=== PATIENT | female | born 1935 | race Caucasian/White ===

== ENCOUNTER 2017-01-12 22:38 | Observation (INO) | payer OTHER, MEDICARE ==
--- NOTE | 2017-01-12 22:58 | PDOC ---
History of Present Illness - General Chief Complaint: Chest Pain Stated Complaint: CHEST PAIN Time Seen by Provider: 01/12/17 22:44 History Source: Patient Exam Limitations: No Limitations - History of Present Illness Initial Comments: 01/12/17 23:11 This is a 81-year-old female with history of anxiety who comes in complaining of left-sided chest pain. Patient has a history significant for non-insulin- dependent diabetes who is non-med compliant and hypertension who is occasionally compliant with her hypertension medications. Patient comes in complaining of left-sided chest pain since approximately 4 PM this afternoon. Patient said pain is been constant but has had no associated symptoms of radiation, nausea, diaphoresis, shortness of breath or any other symptoms. Patient is also complaining of left lower extremity swelling and discomfort. Patient has history significant for DVT and PE in the past patient was on Coumadin but has not been on it for several years. Patient says she does take an aspirin twice a day when she remembers. Patient otherwise lives alone. PAST MEDICAL HISTORY: As per history of present illness PAST SURGICAL HISTORY: no significant history FAMILY HISTORY: Hypertension, diabetes SOCIAL HISTORY: Pt lives alone as it is retired MEDICATIONS: reviewed ALLERGIES: As per nursing notes Review of Systems General: No fevers or chills, no weakness, no weight loss HEENT: No change in vision. No sore throat,. No ear pain CardioVascular: +chest pain, no shortness of breath Respiratory:No cough, or wheezing. Gastrointestinal: no nausea, vomitting, diarrhea or constipation, No rectal bleeding Genitourinary: No dysuria, hematuria, or frequency Musculoskeletal: No joint or muscle pain or swelling, left lower leg swelling Neurologic: No headache, vertigo, dizziness or loss of consciousness Psychiatric: nor depression Skin: No rashes or easy bruising Endocrine: no increased thirst or abnormal weight change Allergic: no skin or latex allergy All other systems reviewed and normal Exam: General: Well-nourished well-developed individual, no acute distress HEENT: Throat: Normal, tonsils normal, no erythema or exudate Neck: Supple, no meningeal signs, no lymphadenopathy Eyes::Pupils equal reactive and round, extraocular motion intact Chest: Nontender to palpation Cardiac: S1-S2 normal, regular rate and rhythm, no murmurs rubs or gallops Respiratory: Lungs clear to auscultation bilateral Abdomen: Soft, nondistended, normal bowel sounds, nontender to palpation diffusely Extremities: Warm, dry, left lower extremity extremity there is 2+ nonpitting edema with increase in warmth and mild erythema extending to the knee There is no palpable tender cord. Pulses are intact distally Skin: No rashes Neuro: Alert and oriented x3, nonfocal exam, grossly intact, normal gait Psych: Normal mood and affect Past History - Past Medical History Allergies/Adverse Reactions: Allergies Allergy/AdvReac Type Severity Reaction Status Date / Time No Known Allergies Allergy Verified 08/30/15 13:52 Home Medications: Ambulatory Orders Acetaminophen [Tylenol Extra Strength] 1,000 mg PO PRN PRN 09/25/14 Albuterol Sulfate Inhaler - [Ventolin HFA Inhaler -] 2 inh PO Q6H #1 inh Aspirin [Aspirin EC] 162 mg PO DAILY 09/25/14 Metformin HCl [Glucophage -] 500 mg PO BID 09/25/14 Salmeterol/Fluticasone [Advair 500Mcg/50Mcg] 1 inh PO BID PRN 09/25/14 Asthma: Yes Diabetes: Yes (TYPE II) HTN: Yes Lung CA: (PE) - Psycho/Social/Smoking Cessation Hx Anxiety: No Suicidal Ideation: No Smoking History: Former smoker Have you smoked in the past 12 months: No Hx Alcohol Use: Yes (SOCIAL) Drug/Substance Use Hx: No Substance Use Type: None *Physical Exam - Vital Signs Last Vital Signs Temp Pulse Resp BP Pulse Ox 98.5 F 78 18 150/63 98 01/12/17 22:45 01/12/17 22:45 01/12/17 22:45 01/12/17 22:45 01/12/17 22:45 Heart Score/ECG Review - History History: Slightly suspicious - Electrocardiogram EKG: Normal - Age Age: >/= 65 - Risk Factors Risk Factors Heart Score: Yes Hx Hypertension, Yes Hx Diabetes, Yes Smoking History Based on the list above the patient has:: >/=3 risk factors or Hx atherosclerotic disease - Troponin Troponin: </= normal limit - Score Heart Score - Total: 4 ED Treatment Course - LABORATORY CBC & Chemistry Diagram: 01/12/17 23:05 01/12/17 23:05 - ADDITIONAL ORDERS Additional order review: Laboratory Results 01/12/17 01/12/17 23:05 23:05 Sodium 135 L Potassium 4.1 Chloride 102 Carbon Dioxide 24 Anion Gap 9 BUN 25 H Creatinine 1.3 D Creat Clearance w eGFR 39.31 Random Glucose 177 H Calcium 9.0 Total Bilirubin 0.6 AST 21 ALT 14 D Alkaline Phosphatase 84 Creatine Kinase 83 Troponin I < 0.03 L Total Protein 6.2 L Albumin 3.4 L 01/12/17 23:05 RBC 4.41 MCV 81.8 MCHC 32.0 RDW 15.2 MPV 8.3 Neutrophils % 65.3 Lymphocytes % 18.3 Monocytes % 8.7 D Eosinophils % 5.5 H Basophils % 2.2 H D - RADIOLOGY Radiology Studies Ordered: Category Date Time Status CHEST X-RAY PORTABLE* [RAD] Stat Radiology 01/13/17 00:18 Ordered DUPLEX VASCUL US-1 LEG [US] Stat Ultrasound 01/12/17 23:21 Taken *DC/Admit/Observation/Transfer Diagnosis at time of Disposition: Chest pain of uncertain etiology - Discharge Dispostion Condition at time of disposition: Stable Admit: Yes Decision to Admit order Date/Time: Decision to Admit Order Category Date Time Status Decision to Admit to Hospital Routine Admission 01/13/17 00:20 Active - Referrals Referrals: Dago Foss [Primary Care Provider] -
[2017-01-12 23:37] LABS: CPK(DFH) 83 IU/L (26-140)
[2017-01-12 23:38] LABS: ALBUMIN 3.4 g/dl (3.5-5.0); BILIRUBIN,TOTAL 0.6 mg/dl (0.2-1.0); CREATININE 1.3 mg/dl (0.6-1.3); TOT PROT 6.2 g/dl (6.4-8.3)
[2017-01-12 23:39] LABS: BASOPHIL 2.2 % (0-2.0); EOSINOPHIL 5.5 % (0-4.5); MCH 26.1 pg (25.7-33.7); MEAN CELL VOLUME 81.8 fl (80-96); MEAN PLT VOLUME 8.3 fl (7.5-11.1); NEUTROPHILS 65.3 % (42.8-82.8); PLATELET COUNT 376 K/MM3 (134-434); RDW 15.2 % (11.6-15.6); WHITE BLOOD COUNT 6.6 K/mm3 (4.0-10.0)
[2017-01-12 23:47] LABS: TROPONIN I (DFP) < 0.03 ng/ml (0.03-0.50)
[2017-01-13] MEDS ORDERED: ALBUTEROL SO4 0.083% IH SOL 2.5 MG/3 ML VIAL.NEB. NEB PRN (00:31)
[2017-01-13] MEDS ORDERED: PIPERACILLIN/TAZOB 3.375 GM/50 ML PRE-DOCKED IVPB STA (00:33)
[2017-01-13] MEDS ORDERED: PIPERACILLIN/TAZOBACTAM 3.375 GM VIAL IVPB ONE (00:35)
[2017-01-13] MEDS ORDERED: MAG HYDROX/AL HYDROX/SIMETH 355 ML ORAL.SUSP PO ONE (00:42)
[2017-01-13] MEDS ORDERED: FAMOTIDINE 20 MG/50 ML IVPB 50 ML IVPB ONE ×2 (00:42→00:48)
[2017-01-13] MEDS ORDERED: ALBUTEROL SO4 0.083% IH SOL 2.5 MG/3 ML VIAL.NEB. NEB ONE (00:48)
[2017-01-13] MEDS ORDERED: MAG HYDROX/AL HYDROX/SIMETH 30 ML UNIT-DOSE CUP ONE (00:48)
[2017-01-13 02:55] VITALS: BMI 24.0
[2017-01-13] MEDS: INSULIN SLIDING SCALE (NOVOLOG) 1 VIAL SQ SCH ×3 (07:03→21:30)
[2017-01-13 07:52] LABS: MCHC 32.8 g/dl (32.0-36.0); MEAN CELL VOLUME 82.2 fl (80-96); MEAN PLT VOLUME 8.2 fl (7.5-11.1); PLATELET COUNT 329 K/MM3 (134-434); RDW 15.4 % (11.6-15.6); WHITE BLOOD COUNT 7.1 K/mm3 (4.0-10.0)
[2017-01-13 08:08] LABS: CALCIUM 9.1 mg/dl (8.4-10.2); CREATININE 1.1 mg/dl (0.6-1.3)
--- NOTE | 2017-01-13 08:39 | HP ---
CHIEF COMPLAINT: Chest pain PCP: Dr. 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 The pain was located on the left side of her hcest, did not radiate, and was burning in character. She thinks it might have been brought on by eating several pieces of chicken with the skin on, which she does not normally do. She denies any associated shortness of breath, nausea/vomiting, or diaphoresis. 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 Recent Travel: None PAST MEDICAL HISTORY: As above PAST SURGICAL HISTORY: Multiple back surgeries at L5/S1 Social History: Lives alone, independent in ADLs Smoking: None Alcohol: None Drugs: None Family History: Allergies No Known Allergies Allergy (Verified 08/30/15 13:52) HOME MEDICATIONS: Home Medications Medication Instructions Recorded Acetaminophen [Tylenol Extra 1,000 mg PO PRN PRN 09/25/14 Strength] Albuterol Sulfate Inhaler - 2 inh PO Q6H #1 inh 09/25/14 [Ventolin HFA Inhaler -] Aspirin [Aspirin EC] 162 mg PO DAILY 09/25/14 Metformin HCl [Glucophage -] 500 mg PO BID 09/25/14 Salmeterol/Fluticasone [Advair 1 inh PO BID PRN 09/25/14 500Mcg/50Mcg] REVIEW OF SYSTEMS CONSTITUTIONAL: Absent: fever, chills, diaphoresis, generalized weakness, malaise, loss of appetite, weight change HEENT: Absent: rhinorrhea, nasal congestion, throat pain, throat swelling, difficulty swallowing, mouth swelling, ear pain, eye pain, visual changes CARDIOVASCULAR: See HPI RESPIRATORY: Absent: cough, shortness of breath, dyspnea with exertion, orthopnea, wheezing, stridor, hemoptysis GASTROINTESTINAL: Absent: abdominal pain, abdominal distension, nausea, vomiting, diarrhea, constipation, melena, hematochezia GENITOURINARY: Absent: dysuria, frequency, urgency, hesitancy, hematuria, flank pain, genital pain MUSCULOSKELETAL: Absent: myalgia, arthralgia, joint swelling, back pain, neck pain SKIN: Left leg swelling, pain, and redness for several weeks. HEMATOLOGIC/IMMUNOLOGIC: Absent: easy bleeding, easy bruising, lymphadenopathy, frequent infections ENDOCRINE: Absent: unexplained weight gain, unexplained weight loss, heat intolerance, cold intolerance NEUROLOGIC: Absent: headache, focal weakness or paresthesias, dizziness, unsteady gait, seizure, mental status changes, bladder or bowel incontinence PSYCHIATRIC: Absent: anxiety, depression, suicidal or homicidal ideation, hallucinations. PHYSICAL EXAMINATION Vital Signs - 24 hr 01/13/17 02:40 Temperature 98.8 F Pulse Rate 73 Respiratory 18 Rate Blood Pressure 140/54 O2 Sat by Pulse 98 Oximetry (%) GENERAL: Awake, alert, and fully oriented, in no acute distress. EYES: Pupils equal, round and reactive to light, extraocular movements intact, sclera anicteric, conjunctiva clear. No lid lag. EARS, NOSE, THROAT: Ears normal, nares patent, oropharynx clear without exudates. Moist mucous membranes. NECK: Normal range of motion, supple without lymphadenopathy, JVD, or masses. LUNGS: Breath sounds equal, clear to auscultation bilaterally. No wheezes, and no crackles. No accessory muscle use. HEART: Regular rate and rhythm, normal S1 and S2 without murmur, rub or gallop. ABDOMEN: Soft, nontender, not distended, normoactive bowel sounds, no guarding, no rebound, no masses. No hepatomegaly or splenomegaly. MUSCULOSKELETAL: Normal range of motion at all joints. No bony deformities or tenderness. No CVA tenderness. UPPER EXTREMITIES: 2+ pulses, warm, well-perfused. No cyanosis. No clubbing. No peripheral edema. LOWER EXTREMITIES: 2+ pulses, warm, well-perfused. No calf tenderness. LLE with 2+ pitting edema, erythema from ankle to knee, +calf tenderness. NEUROLOGICAL: Cranial nerves II-XII intact. Normal speech. Normal gait. PSYCHIATRIC: Anxious affect. SKIN: Warm, dry, normal turgor, no rashes or lesions noted, normal capillary refill. Laboratory Results - last 24 hr 01/13/17 01/13/17 01/13/17 06:00 06:30 07:02 WBC 7.1 RBC 4.11 Hgb 11.1 Hct 33.8 MCV 82.2 MCHC 32.8 RDW 15.4 Plt Count 329 MPV 8.2 Sodium 135 L Potassium 4.2 Chloride 102 Carbon Dioxide 26 Anion Gap 7 L BUN 23 H Creatinine 1.1 POC Glucometer 293 Random Glucose 340 H* D Calcium 9.1 ASSESSMENT/PLAN: 81 year old female placed in observation for chest pain. 1. Chest pain -Monitor on telemetry -Serial troponins to rule out [place] -Continue ASA -Check lipid profile 2. Lower extremity pain and redness -Suspect cellulitis -No SIRS criteria present -Follow up official duplex read: [facility] preliminary report is negative for DVT -Zosyn x 1 dose given in ED -Start Ceftriaxone 1g daily, Vancomycin x 1 dose -Leg elevation -ID consultation requested 3. NIDDM -Patient reports that she stopped taking her medications 3-4 weeks ago and has been eating large amounts of sugary foods -FSACHS -ISS -Diabetic diet -Check HgbA1C 4. HTN -Not on any meds currently -At goal for age -Observe 5. Ppx -Heparin 5000 units sq bid -PT/ambulation DISPO: Observation. Visit type - Emergency Visit Emergency Visit: Yes ED Registration Date: 01/13/17 Care time: The patient presented to the Emergency Department on the above date and was hospitalized for further evaluation of their emergent condition. - New Patient This patient is new to me today: Yes Date on this admission: 01/14/17 - Critical Care Critical Care patient: No
[2017-01-13] MEDS ORDERED: PATIENT'S OWN MEDICATION (NON-FORMULARY) (Salmeterol/Fluticasone [Advair 500mcg/50mcg -] 1 PO PRN (08:41)
[2017-01-13] MEDS: HEPARIN NA (PORCINE) 5,000 UNITS/ML 1ML VIAL SQ SCH ×2 (09:59→21:31)
[2017-01-13] MEDS: ASPIRIN 81 MG CHEWABLE TABLETS PO SCH (09:59)
[2017-01-13] MEDS: FLUTICASONE/SALMETEROL 100 MCG/50 MCG DISKUS IH SCH ×2 (10:05→21:30)
[2017-01-13] MEDS ORDERED: VANCOMYCIN 750 MG in DEXTROSE 5%-WATER - 250 ML IVPB ONE (10:05)
[2017-01-13] MEDS ORDERED: CEFTRIAXONE 1 GM in DEXTROSE 5%-WATER - 100 ML IVPB ONE (10:15)
[2017-01-13] MEDS ORDERED: CEFTRIAXONE 1 GM/50 ML IVPB SCH (10:30)
--- NOTE | 2017-01-13 11:22 | EKG ---
Test Reason : Blood Pressure : / mmHG Vent. Rate : 078 BPM Atrial Rate : 078 BPM P-R Int : 122 ms QRS Dur : 074 ms QT Int : 384 ms P-R-T Axes : 073 037 055 degrees QTc Int : 437 ms SINUS RHYTHM WITH PREMATURE ATRIAL COMPLEXES NONSPECIFIC T WAVE ABNORMALITY NO PREVIOUS ECGS AVAILABLE Confirmed by MD BREANNE, JUHI ([id number]) on 01/13/2017 11:22:16 AM Referred By: AKUA Confirmed By:JUHI RAYMUNDO MD
[2017-01-13 11:34] LABS: CPK(DFH) 57 IU/L (26-140)
[2017-01-13 11:50] LABS: TROPONIN I (DFP) < 0.03 ng/ml (0.03-0.50)
[2017-01-13] MEDS ORDERED: PT OWN MED DRAWER 7, Y5N ONE (21:46)
[2017-01-14] MEDS ORDERED: LORazepam 0.5 MG TABLET PO PRN (00:03)
[2017-01-14] MEDS: INSULIN SLIDING SCALE (NOVOLOG) 1 VIAL SQ SCH ×5 (06:57→21:05)
[2017-01-14 08:10] LABS: BASOPHIL 0.6 % (0-2.0); EOSINOPHIL 5.1 % (0-4.5); MCH 26.7 pg (25.7-33.7); MCHC 32.8 g/dl (32.0-36.0); MEAN CELL VOLUME 81.6 fl (80-96); MEAN PLT VOLUME 8.3 fl (7.5-11.1); NEUTROPHILS 66.7 % (42.8-82.8); PLATELET COUNT 289 K/MM3 (134-434); RDW 15.4 % (11.6-15.6); WHITE BLOOD COUNT 6.8 K/mm3 (4.0-10.0)
[2017-01-14 08:44] LABS: ALBUMIN 2.9 g/dl (3.5-5.0); ALK PHOS 72 U/L (32-92); ANION GAP 7 (8-16); BILIRUBIN,TOTAL 0.8 mg/dl (0.2-1.0); CALCIUM 9.1 mg/dl (8.4-10.2); CO2 26 mmol/L (22-28); CREATININE 0.8 mg/dl (0.6-1.3); GLUCOSE,RANDOM 198 mg/dl (74-106); SGOT/AST 19 U/L (10-42); SGPT/ALT 15 U/L (10-40); TOT PROT 5.4 g/dl (6.4-8.3)
[2017-01-14 09:03] LABS: CHOLESTEROL 273 mg/dl
--- NOTE | 2017-01-14 09:10 | PN ---
Progress Note (short form) - Note Progress Note: ID Consult dictated Cellulitis L LE NIDDM Empiric cefazolin 1gm IVPB q8h Elevation May substitute keflex 500mg po tid next 24hr
[2017-01-14] MEDS ORDERED: PT OWN MED DRAWER 7, Y5N ONE ×2 (09:25→20:50)
[2017-01-14] MEDS: FLUTICASONE/SALMETEROL 100 MCG/50 MCG DISKUS IH SCH ×2 (09:40→21:07)
[2017-01-14] MEDS: ASPIRIN 81 MG CHEWABLE TABLETS PO SCH (09:40)
[2017-01-14] MEDS: CEFAZOLIN 1 GM/D5W 50 ML IVPB SCH ×2 (09:41→18:30)
[2017-01-14] MEDS: HEPARIN NA (PORCINE) 5,000 UNITS/ML 1ML VIAL SQ SCH ×2 (09:41→21:07)
[2017-01-14] MEDS ORDERED: CEFTRIAXONE 1 GM/50 ML IVPB SCH (10:00)
--- NOTE | 2017-01-14 10:28 | CONS ---
INFECTIOUS DISEASE CONSULTATION DATE OF CONSULTATION: DATE OF DICTATON: 01/14/2017 HISTORY OF PRESENT ILLNESS: The patient is an 81-year-old oig-kpqfxup-lkomisaew diabetic who was evaluated for cellulitis of the left lower extremity. She presented to the hospital on January 12, 2017 with complaints of left-sided chest pain. She was noted to have erythema and swelling of the left lower extremity. A Doppler exam was performed and was negative for DVT. She empirically received Zosyn, ceftriaxone and vancomycin. She denies any traumatic injury to her left lower extremity. No insect or animal bites or scratches. She denies prior history of cellulitis or serious soft tissue infection requiring hospitalization. She denies history of MRSA. According to the notes, she has a history of PE and DVT; however, she has no recall for blood clot in her leg. PAST MEDICAL HISTORY; Positive for [id number]-kcxsftrsl diabetes mellitus, hypertension, DVT, pulmonary embolism. ALLERGIES: No known allergies. MEDICATIONS: Tylenol, Ventolin, aspirin, metformin, Advair. SOCIAL HISTORY: Lives at home. She is a . A former smoker. SYSTEMS REVIEW: Neurologic: No loss of consciousness, seizure activity or focal weakness. Cardiac: As per HPI. Respiratory: Negative for cough or sputum production. Gastrointestinal: Negative for vomiting or diarrhea. Genitourinary: Negative for urinary tract infection. LABORATORY DATA: White count 7.1, hematocrit 33.8. Platelet count 329. BUN 23, creatinine 1.1. Blood cultures preliminarily negative. Chest x-ray negative. PHYSICAL EXAMINATION: General: She is out about the chair. She is not acutely toxic appearing. Vital signs: Temperature 98.0, blood pressure 128/71, pulse 80/regular, respirations 18 per minute; HEENT: Sclera anicteric. Heart sounds: S1, S2. Lungs: Clear. Abdomen: Soft, no tenderness elicited. No mass, rebound or rigidity. Extremities: 1+ left lower extremity edema from below the knee to the foot. There is mild erythema and warmth involving the distal left lower extremity from the area below the knee to the foot. It is warm to touch. There is no crepitus or fluctuance and no lymphangitic streaking. IMPRESSION: 1. Cellulitis, left lower extremity. 2. Qjm-jptyshs-uwlgzzzuw diabetes mellitus. 3. Chest pain syndrome. PLAN: 1. Empiric antibiotic coverage of skin pathogens in this patient from the community with cefazolin 1 gm IV piggyback every 8 hours. 2. Continue elevation. 3. If stable, substitute Keflex 500 mg p.o. every 8 hours next 24-48 hours. SAIRA JUNG M.D. ADAM/[id number]
[2017-01-14] MEDS ORDERED: INSULIN (NOVOLOG) ASPART 100 UNITS/ML 10ML VIAL ONE ×4 (11:33→16:34)
[2017-01-14] MEDS: RANITIDINE HCL 150 MG TABLET (FP) PO SCH ×2 (11:34→21:06)
--- NOTE | 2017-01-14 13:16 | PN ---
[id number] denies any dyspnea on exertion. OBJECTIVE: patient is an 81 year old female with a history of NIDDM, HTN, DVT/ PE (no longer on AC), and anxiety Patient was admitted to observation for the emergency department for left lower extremity cellulitis and chest pain R/O ACS Vital Signs Period Temp Pulse Resp BP Sys/Francisco Pulse Ox Last 24 Hr 98.0 F-99.0 F 65-80 17-20 120-135/51-70 97-99 GENERAL: The patient is awake, alert, and fully oriented, in no acute distress. HEAD: Normal with no signs of trauma. EYES: PERRL, extraocular movements intact, sclera anicteric, conjunctiva clear. No ptosis. ENT: Ears normal, nares patent, oropharynx clear without exudates, moist mucous membranes. NECK: Trachea midline, full range of motion, supple. LUNGS: Breath sounds equal, clear to auscultation bilaterally, no wheezes, no crackles, no accessory muscle use. HEART: Regular rate and rhythm, S1, S2 without murmur, rub or gallop. ABDOMEN: Soft, nontender, nondistended, normoactive bowel sounds, no guarding, no rebound, no hepatosplenomegaly, no masses. EXTREMITIES: 2+ pulses, warm, well-perfused, no edema. left lower extremity, minimal erythema+1 trace edema less than 3 second capillary refill +4 pedal pulse NEUROLOGICAL: Cranial nerves II through XII grossly intact. Normal speech, steady gait is noted PSYCH: Normal mood, normal affect. SKIN: Warm, dry, normal turgor, no rashes or lesions noted Laboratory Results - last 24 hr 01/13/17 01/14/17 01/14/17 21:23 06:42 07:33 WBC 6.8 RBC 3.81 Hgb 10.2 L Hct 31.1 L MCV 81.6 MCHC 32.8 RDW 15.4 Plt Count 289 MPV 8.3 Neutrophils % 66.7 Lymphocytes % 21.4 Monocytes % 6.2 Eosinophils % 5.1 H Basophils % 0.6 Sodium Potassium Chloride Carbon Dioxide Anion Gap BUN Creatinine Creat Clearance w eGFR POC Glucometer 281 166 Random Glucose Hemoglobin A1c % Calcium Total Bilirubin AST ALT Alkaline Phosphatase Total Protein Albumin Triglycerides Cholesterol Total LDL Cholesterol HDL Cholesterol 01/14/17 01/14/17 01/14/17 07:33 07:33 08:00 WBC RBC Hgb Hct MCV MCHC RDW Plt Count MPV Neutrophils % Lymphocytes % Monocytes % Eosinophils % Basophils % Sodium 138 Potassium 4.3 Chloride 105 Carbon Dioxide 26 Anion Gap 7 L BUN 20 H Creatinine 0.8 D Creat Clearance w eGFR > 60 POC Glucometer Random Glucose 198 H D Hemoglobin A1c % 10.4 H Calcium 9.1 Total Bilirubin 0.8 D AST 19 ALT 15 Alkaline Phosphatase 72 Total Protein 5.4 L Albumin 2.9 L Triglycerides 89 Cholesterol 273 Total LDL Cholesterol 160 HDL Cholesterol 95 H 01/14/17 11:14 WBC RBC Hgb Hct MCV MCHC RDW Plt Count MPV Neutrophils % Lymphocytes % Monocytes % Eosinophils % Basophils % Sodium Potassium Chloride Carbon Dioxide Anion Gap BUN Creatinine Creat Clearance w eGFR POC Glucometer 194 Random Glucose Hemoglobin A1c % Calcium Total Bilirubin AST ALT Alkaline Phosphatase Total Protein Albumin Triglycerides Cholesterol Total LDL Cholesterol HDL Cholesterol Active Medications Generic Name Dose Route Start Last Admin Trade Name Freq PRN Reason Stop Dose Admin Albuterol Sulfate 1 amp 01/13/17 00:31 01/13/17 01:13 Ventolin 0.083% Nebulizer Soln - NEB 1 amp Q8H PRN Administration SHORT OF BREATH/WHEEZING Aspirin 162 mg 01/13/17 10:00 01/14/17 09:40 Asa - PO 162 mg DAILY GOSIA Administration Heparin Sodium (Porcine) 5,000 unit 01/13/17 10:00 01/14/17 09:41 Heparin - SQ 5,000 unit BID GOSIA Administration Cefazolin Sodium 50 mls @ 100 mls/hr 01/14/17 10:00 01/14/17 09:41 Ancef 1 Gm Premixed Ivpb - IVPB 100 mls/hr Q8H-IV GOSIA Administration Insulin Aspart 1 vial 01/13/17 07:00 01/14/17 11:34 Novolog Vial Sliding Scale - SQ 2 units ACHS GOSIA Administration Protocol Lorazepam 0.5 mg 01/14/17 00:03 Ativan - PO BID PRN ANXIETY Ranitidine HCl 150 mg 01/14/17 11:15 01/14/17 11:34 Zantac - PO 150 mg BID GOSIA Administration Fluticasone/Salmeterol 1 puff 01/13/17 10:00 01/14/17 09:40 Advair 100mcg/50mcg - IH 1 puff BID GOSIA Administration ASSESSMENT/PLAN: 1. card: Chest pain -continuous telemetry monitoring no dysrhythmias noted - troponin 3 WNL - pending echo 2. ID:Lower extremity pain and redness - ultrasound of LE doppler: negative - continue ancef as per ID -ID consulted and followed 3. NIDDM -Patient reports that she stopped taking her medications 3-4 weeks ago and has been eating large amounts of sugary foods -FSACHS -ISS -Diabetic diet - HgbA1C elevated 4. HTN -Not on any meds currently -At goal for age -Observe 5. Ppx -Heparin 5000 units sq bid -PT/ambulation DISPO: Observation. Visit type - Emergency Visit Emergency Visit: Yes ED Registration Date: 01/13/17 Care time: The patient presented to the Emergency Department on the above date and was hospitalized for further evaluation of their emergent condition. - New Patient This patient is new to me today: Yes Date on this admission: 01/14/17 - Critical Care Critical Care patient: No - Discharge Referral Referred to [facility] Med P.C[facility] No
[2017-01-15] MEDS: CEFAZOLIN 1 GM/D5W 50 ML IVPB SCH ×2 (01:29→09:51)
[2017-01-15 05:41] VITALS: BP 127/48; PULSE 64; TEMP 98.5
[2017-01-15] MEDS ORDERED: INSULIN (NOVOLOG) ASPART 100 UNITS/ML 10ML VIAL ONE ×2 (07:19→11:11)
[2017-01-15] MEDS: INSULIN SLIDING SCALE (NOVOLOG) 1 VIAL SQ SCH ×2 (07:21→11:16)
[2017-01-15] MEDS ORDERED: PT OWN MED DRAWER 7, Y5N ONE (09:47)
[2017-01-15] MEDS: RANITIDINE HCL 150 MG TABLET (FP) PO SCH (09:51)
[2017-01-15] MEDS: ASPIRIN 81 MG CHEWABLE TABLETS PO SCH (09:51)
[2017-01-15] MEDS: FLUTICASONE/SALMETEROL 100 MCG/50 MCG DISKUS IH SCH (09:51)
[2017-01-15] MEDS: HEPARIN NA (PORCINE) 5,000 UNITS/ML 1ML VIAL SQ SCH (09:51)
--- NOTE | 2017-01-15 10:32 | PN ---
Progress Note, Physician History of Present Illness: OOB in chair No c/o leg pain No c/o fever/ chills - Current Medication List Current Medications: Active Medications Albuterol Sulfate (Ventolin 0.083% Nebulizer Soln -) 1 amp NEB Q8H PRN PRN Reason: SHORT OF BREATH/WHEEZING Last Admin: 01/13/17 01:13 Dose: 1 amp Aspirin (Asa -) 162 mg PO DAILY GOSIA Last Admin: 01/15/17 09:51 Dose: 162 mg Heparin Sodium (Porcine) (Heparin -) 5,000 unit SQ BID GOSIA Last Admin: 01/15/17 09:51 Dose: 5,000 unit Cefazolin Sodium (Ancef 1 Gm Premixed Ivpb -) 50 mls @ 100 mls/hr IVPB Q8H-IV GOSIA Last Admin: 01/15/17 09:51 Dose: 100 mls/hr Insulin Aspart (Novolog Vial Sliding Scale -) 1 vial SQ ACHS GOSIA PRN Reason: Protocol Last Admin: 01/15/17 07:21 Dose: 4 units Lorazepam (Ativan -) 0.5 mg PO BID PRN PRN Reason: ANXIETY Last Admin: 01/15/17 01:28 Dose: 0.5 mg Ranitidine HCl (Zantac -) 150 mg PO BID [facility] Last Admin: 01/15/17 09:51 Dose: 150 mg Fluticasone/Salmeterol (Advair 100mcg/50mcg -) 1 puff IH BID [facility] Last Admin: 01/15/17 09:51 Dose: 1 puff - Objective Vital Signs: Vital Signs Temperature 98.5 F 01/15/17 05:39 Pulse Rate 64 01/15/17 05:39 Respiratory Rate 18 01/15/17 05:39 Blood Pressure 127/48 01/15/17 05:39 O2 Sat by Pulse Oximetry (%) 96 01/15/17 08:14 Constitutional: Yes: No Distress Eyes: Yes: Conjunctiva Clear Cardiovascular: Yes: Regular Rate and Rhythm, S1, S2 Respiratory: Yes: CTA Bilaterally Gastrointestinal: Yes: Normal Bowel Sounds, Soft. No: Tenderness Extremities: Yes: Other (+ LE edema decreased erythema/ warmth L LE) Labs: CBC, BMP 01/14/17 07:33 01/14/17 07:33 Assessment/Plan L LE cellulitis NIDDM May substitute po keflex 500mg tid x 7d
--- NOTE | 2017-01-15 11:18 | DS ---
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 The pain was located on the left side of her hcest, did not radiate, and was burning in character. She thinks it might have been brought on by eating several pieces of chicken with the skin on , which she does not normally do. She denies any associated shortness of breath , nausea/vomiting, or diaphoresis. ER course was notable for: (1) EKG: Sinus rhythm at 78 bpm with PACs (2) Troponin <0.03 (3) WBC within normal limits at 6.6 (4) CXR: no acute pathology (5) Duplex vascular u/s: no evidence of DVT in the LLE per preliminary Imaging deputy controller report Vital Signs Period Temp Pulse Resp BP Sys/Francisco Pulse Ox Last 24 Hr 98 F-99.0 F 64-68 18-18 114-142/48-67 96-99 PHYSICAL EXAM GENERAL: The patient is awake, alert, and fully oriented, in no acute distress. HEAD: Normal with no signs of trauma. EYES: PERRL, extraocular movements intact, sclera anicteric, conjunctiva clear. ENT: Ears normal, nares patent, oropharynx clear without exudates, moist mucous membranes. NECK: Trachea midline, full range of motion, supple. LUNGS: Breath sounds equal, clear to auscultation bilaterally, no wheezes, no crackles, no accessory muscle use. HEART: Regular rate and rhythm, S1, S2 without murmur, rub or gallop. ABDOMEN: Soft, nontender, nondistended, normoactive bowel sounds, no guarding, no rebound, no hepatosplenomegaly, no masses. EXTREMITIES: 2+ pulses, warm, well-perfused, no edema. NEUROLOGICAL: Cranial nerves II through XII grossly intact. Normal speech, gait not observed. PSYCH: Normal mood, normal affect. SKIN: Warm, dry, normal turgor, no rashes or lesions noted. LABS Laboratory Results - last 24 hr 01/14/17 01/14/17 01/14/17 11:14 16:22 20:57 POC Glucometer 194 296 150 01/15/17 06:37 POC Glucometer 214 CBC WBC 6.8 K/mm3 (4.0-10.0) 01/14/17 07:33 RBC 3.81 M/mm3 (3.60-5.2) 01/14/17 07:33 Hgb 10.2 GM/dl (10.7-15.3) L 01/14/17 07:33 Hct 31.1 % (32.4-45.2) L 01/14/17 07:33 MCV 81.6 fl (80-96) 01/14/17 07:33 MCHC 32.8 g/dl (32.0-36.0) 01/14/17 07:33 RDW 15.4 % (11.6-15.6) 01/14/17 07:33 Plt Count 289 K/MM3 (134-434) 01/14/17 07:33 MPV 8.3 fl (7.5-11.1) 01/14/17 07:33 Neutrophils % 66.7 % (42.8-82.8) 01/14/17 07:33 Lymphocytes % 21.4 % (8-40) 01/14/17 07:33 Monocytes % 6.2 % (3.8-10.2) 01/14/17 07:33 Eosinophils % 5.1 % (0-4.5) H 01/14/17 07:33 Basophils % 0.6 % (0-2.0) 01/14/17 07:33 CMP Sodium 138 mmol/L (136-145) 01/14/17 07:33 Potassium 4.3 mmol/L (3.5-5.1) 01/14/17 07:33 Chloride 105 mmol/L (98-107) 01/14/17 07:33 Carbon Dioxide 26 mmol/L (22-28) 01/14/17 07:33 Anion Gap 7 (8-16) L 01/14/17 07:33 BUN 20 mg/dl (7-18) H 01/14/17 07:33 Creatinine 0.8 mg/dl (0.6-1.3) D 01/14/17 07:33 Creat Clearance w eGFR > 60 (>60) 01/14/17 07:33 POC Glucometer 229 UNITS (()) 01/15/17 11:09 Random Glucose 198 mg/dl (74-106) H D 01/14/17 07:33 Hemoglobin A1c % 10.4 % (4.8-6.0) H 01/14/17 08:00 Calcium 9.1 mg/dl (8.4-10.2) 01/14/17 07:33 Total Bilirubin 0.8 mg/dl (0.2-1.0) D 01/14/17 07:33 AST 19 U/L (10-42) 01/14/17 07:33 ALT 15 U/L (10-40) 01/14/17 07:33 Alkaline Phosphatase 72 U/L (32-92) 01/14/17 07:33 Creatine Kinase 57 IU/L (26-140) 01/13/17 10:50 Troponin I < 0.03 ng/ml (0.03-0.50) L 01/13/17 10:50 Total Protein 5.4 g/dl (6.4-8.3) L 01/14/17 07:33 Albumin 2.9 g/dl (3.5-5.0) L 01/14/17 07:33 Triglycerides 89 mg/dl (35-160) 01/14/17 07:33 Cholesterol 273 mg/dl 01/14/17 07:33 Total LDL Cholesterol 160 mg/dl 01/14/17 07:33 HDL Cholesterol 95 mg/dl (29-89) H 01/14/17 07:33 HOSPITAL COURSE: patient was admitted to observation from the emergency department for chest pain rule out ACS. She was placed on continuous telemetry monitoring no dysrhythmias was noted, troponin 3 WNL. Echocardiogram grade I diastolic dysfunction, LV WNL. patient was also noted to have cellulitis of the left lower extremity, ultrasound of left lower extremity resulted as negative for DVTs. Patient was placed on cefazolin IV for 48 hours. Infectious disease physician, Dr. Montemayor was consulted and followed patient throughout hospitalization. Hypoglycemia was noted upon admission from the emergency department. Patient reports that she stopped taking her metformin 3-4 weeks ago and has been eating large amounts of sugary foods. She was placed on fingersticks before meals and at bedtime with regular insulin coverage. A1c resulted as 10, patient advised restarting metformin with follow-up to her primary care physician. Blood pressure remained at goal through out hospitalization. Minutes to complete discharge: 45 Discharge Summary Reason For Visit: CHEST PAIN Current Active Problems Chest pain of uncertain etiology (Acute) Condition: Stable - Instructions Diet, Activity, Other Instructions: resume diabetic diet continue taking Keflex daily as prescribed Continue all medications as prescribed Return to the emergency department immediately with ANY new, persistent or worsening symptoms. You MUST call and follow up with your doctor tomorrow. Please make sure your doctor reviews the results of your hospital stay. Referrals: Dago Foss [Primary Care Provider] - Disposition: HOME - Home Medications Comprehensive Discharge Medication List: Ambulatory Orders Acetaminophen [Tylenol Extra Strength] 1,000 mg PO PRN PRN 09/25/14 Albuterol Sulfate Inhaler - [Ventolin HFA Inhaler -] 2 inh PO Q6H #1 inh Aspirin [Aspirin EC] 162 mg PO DAILY 09/25/14 Metformin HCl [Glucophage -] 500 mg PO BID 09/25/14 Salmeterol/Fluticasone [Advair 500Mcg/50Mcg] 1 inh PO BID PRN 09/25/14 This patient is new to me today: No Emergency Visit: Yes ED Registration Date: 01/13/17 Care time: The patient presented to the Emergency Department on the above date and was hospitalized for further evaluation of their emergent condition. Critical Care patient: No - Discharge Referral Referred to [facility] Med P.C.: No
== END 2017-01-15 14:12 | disposition home or self-care (01) ==
LOC: FER 22:38 → FM/S 01-13 01:15
PROVIDERS: ADMIT Internal Medicine; ATTEND Nurse Practitioner Family
DX: R07.9 Chest pain, unspecified (principal); L03.116 Cellulitis of left lower limb; E11.9 Type 2 diabetes mellitus without complications; I10 Essential (primary) hypertension
CPT/HCPCS: 36415; 71010-TC; 80048; 80053; 80061; 82550; 83036; 84484; 85025; 85027; 87040; 93005; 93306-TC; 93971-TC; 97116-GP; 97161-GP; 99283-25; G0378; J1644

== ENCOUNTER 2019-07-04 16:38 | Emergency (ER) | payer OTHER, MEDICARE ==
--- NOTE | 2019-07-04 17:18 | PDOC ---
Attending Attestation - Resident Resident Name: EdyJostinSean - ED Attending Attestation I have performed the following: I have examined & evaluated the patient, The case was reviewed & discussed with the resident, I agree w/resident's findings & plan, Exceptions are as noted - HPI HPI: 07/04/19 17:17 83y F hx of dm, Polyarthralgia rheumatica, depression presents with burning chest pain since this morning. pt denies any sob, diaphoresis, n/v, cough, hemoptysis, abd pain, back pain worsening leg swelling. no worsening of discomfort with position or with eating. pt notes a history of similar burning pain in the past. physical exam: no acut edistress pulm: cta b/l card: rrr, no mrg abd soft notnender, no cva tenderness ext: b/l +1 pitting edema b/l skin: no rash on chest possible gastritits, consider acs will ck ekg, labs - Physicial Exam PE: 07/04/19 18:46 see above - Medical Decision Making 07/04/19 18:46 pt feeling improved tolerating oral intake labs reviewed and unremarkble will dc with supportive care at home I discussed the physical exam findings, ancillary test results and final diagnoses with the patient. I answered all of the patient's questions. The patient was satisfied with the care received and felt comfortable with the discharge plan and treatment plan. The patient will call their primary care physician within 24 hours to arrange follow-up and will return to the Emergency Department with any new, persistent or worsening symptoms. Heart Score/ECG Review - ECG Impressions Comment:: 07/04/19 18:46 Twelve-lead EKG was performed and reviewed by me. There is normal sinus rhythm rate of 59 The axis is normal. The intervals are normal. There is normal R wave progression There are no ST or T wave abnormalities. Impression: sinus bradycardiua
[2019-07-04] MEDS ORDERED: MAG HYDROX/AL HYDROX/SIMETH -MYLANTA- ORAL SUSPENSION PO ONE (17:23)
[2019-07-04] MEDS ORDERED: FAMOTIDINE 20 MG TABLET ONE (17:26)
[2019-07-04] MEDS ORDERED: MAG HYDROX/AL HYDROX/SIMETH 30 ML UNIT-DOSE CUP ONE (17:26)
[2019-07-04] MEDS ORDERED: FAMOTIDINE 20 MG TABLET PO ONE (17:26)
[2019-07-04 17:30] VITALS: BP 149/96; PULSE 58; TEMP 98.3; BMI 22.8
[2019-07-04] MEDS ORDERED: risperiDONE 0.25 MG TABLET (FP) PO ONE (17:37)
[2019-07-04] MEDS ORDERED: ROSUVASTATIN CA 20 MG TABLET (FP) PO ONE (17:38)
[2019-07-04 18:04] LABS: BASO % 0.4 % (0-2.0); EOS % 3.6 % (0-4.5); HEMATOCRIT 38.8 % (32.4-45.2); HEMOGLOBIN 12.7 GM/dl (10.7-15.3); LYMPH % 27.4 % (8-40); MCHC 32.8 g/dl (32.0-36.0); MEAN CELL VOLUME 88.5 fl (80-96); MEAN PLT VOLUME 7.9 fl (7.5-11.1); MONO % 8.6 % (3.8-10.2); PLATELET COUNT 297 K/MM3 (134-434); RBC 4.39 M/mm3 (3.60-5.2); RDW 16.9 % (11.6-15.6); WHITE BLOOD COUNT 5.9 K/mm3 (4.0-10.8)
[2019-07-04 18:13] LABS: BILIRUBIN,TOTAL 0.7 mg/dl (0.2-1); CALCIUM 9.9 mg/dl (8.5-10); CREATININE 0.8 mg/dl (0.55-1.3); TOT PROT 6.9 g/dl (6.4-8.2)
--- NOTE | 2019-07-04 18:15 | PDOC ---
History of Present Illness - General Chief Complaint: Pain Stated Complaint: CLAVICLE PAIN,LEG PAIN Time Seen by Provider: 07/04/19 16:54 History Source: Patient Exam Limitations: No Limitations - History of Present Illness Initial Comments: 07/04/19 18:09 Source: Patient, tangential w/ pressured speech HPI: Pt is 83yo F with PMH DM and polymyalgia rheumatica presenting with chest pain since 7AM. Patient reports pain is burning in nature, now reduced to a "rawness or diluted redness" similar to her chronic pains that she associates with polymyalgia rheumtica. Perseverates on FH of DM and heart disease (both parents). Denies shortness of breath, cough, nausea, vomiting, fevers, chills. Says she feels unwell, sad, and "amped up." Endorses good PO. Pain is unchanged from prior chronic pains - denies any new or different symptoms. All: KNDA Meds: per chart PMH: as above PSH: discussion deferred 2/2 tangential nature of interview Past History - Travel Traveled outside of the country in the last 30 days: No Close contact w/someone who was outside of country & ill: No - Past Medical History Allergies/Adverse Reactions: Allergies Allergy/AdvReac Type Severity Reaction Status Date / Time No Known Allergies Allergy Verified 07/04/19 16:40 Home Medications: Ambulatory Orders Empagliflozin [Jardiance] 10 mg PO DAILY 07/04/19 Risperidone 0.25 mg PO HS 07/04/19 Rosuvastatin Calcium [Crestor] 20 mg PO HS 07/04/19 Sitagliptin Phos/Metformin HCl [Janumet 50-500 mg Tablet] 1 each PO BID Asthma: Yes COPD: (DENIES) Diabetes: Yes HTN: Yes Psychiatric Problems: Yes (ANXIETY,DEPRESSION) Lung CA: (PE) Other medical history: PE,DVT - Surgical History Orthopedic Surgery: Yes (L5S1 repair x3) - Suicide/Smoking/Psychosocial Hx Smoking History: Former smoker Have you smoked in the past 12 months: No Information on smoking cessation initiated: No Hx Alcohol Use: No Drug/Substance Use Hx: No Substance Use Type: None Review of Systems - Review of Systems Able to Perform ROS?: Yes (Limited 2/2 tangents) Is the patient limited Romansh proficient: Yes Constitutional: No: Chills, Diaphoresis, Fever, Weakness HEENTM: No: Eye Pain, Nose Pain, Nose Congestion, Throat Pain Respiratory: No: Cough, Shortness of Breath, SOB with Exertion, Wheezing Cardiac (ROS): Yes: See HPI, Chest Pain, Edema (chronic for years). No: Irregular Heart Rate, Palpitations, Syncope, Chest Tightness ABD/GI: No: Constipated, Diarrhea, Nausea, Poor Appetite, Poor Fluid Intake, Vomiting : No: Burning, Dysuria, Discharge, Frequency, Hematuria, Pain Musculoskeletal: No: Back Pain, Gout, Joint Pain, Muscle Pain Integumentary: No: Bruising, Change in Color, Lesions, Pruritus Neurological: No: Headache, Numbness, Tingling, Weakness Psychiatric: Yes: Anxiety, Depression ("I'm just sad! It is a normal human condition") Endocrine: No: Flushing, Intolerance to Cold, Intolerance to Heat, Unexplained Weight Gain, Unexplained Weight Loss Hematologic/Lymphatic: No: Anemia, Easy Bleeding, Easy Bruising All Other Systems: Reviewed and Negative *Physical Exam - Vital Signs Last Vital Signs Temp Pulse Resp BP Pulse Ox 98.3 F 58 L 20 149/96 97 07/04/19 16:39 07/04/19 16:39 07/04/19 16:39 07/04/19 16:39 07/04/19 16:39 - Physical Exam Comments: 07/04/19 18:17 Vitals reviewed, AFHDS Gen: Elderly woman in NAD, sitting in a chair, talkative HEENT: NCAT, EOMI, MMM, normal morphologies, trachea midline, nontender neck, veins flat CV: chest wall nontender, no crepitus, RRR, nl s1s2, no murmurs rubs or gallops Pulm: CTABL, normal WOB, no wheezes / rales / rhonchi, speaking nonstop with one long sentence Abd: soft, nontender, nondistended Ext: WWP, 2+ radial and PT pulses, no clubbing / cyanosis, mild edema on ankles bilaterally Neuro: Alert and oriented, CN grossly intact, MAEE, normal gait MSE: perseveration, tangential, pressured speech Heart Score/ECG Review - History History: Slightly suspicious - Electrocardiogram EKG: Normal - Age Age: >/= 65 - Risk Factors Risk Factors Heart Score: Yes Hx Diabetes Based on the list above the patient has:: 1-2 risk factors - Troponin Troponin: </= normal limit - Score Heart Score - Total: 3 ED Treatment Course - LABORATORY CBC & Chemistry Diagram: 07/04/19 17:45 07/04/19 17:45 - Medications Given in the ED: ED Medications Discontinued Medications Generic Name Dose Route Start Last Admin Trade Name Sathya PRN Reason Stop Dose Admin Al Hydroxide/Mg Hydroxide 30 ml 07/04/19 17:23 07/04/19 17:53 Mylanta Suspension - PO 07/04/19 17:24 30 ml ONCE ONE Administration Famotidine 20 mg 07/04/19 17:26 07/04/19 17:53 Pepcid - PO 07/04/19 17:27 20 mg ONCE ONE Administration Risperidone 0.25 mg 07/04/19 17:37 07/04/19 18:04 Risperdal - PO 07/04/19 17:38 0.25 mg ONCE ONE Administration Rosuvastatin Calcium 20 mg 07/04/19 17:38 07/04/19 18:04 Crestor - PO 07/04/19 17:39 20 mg ONCE ONE Administration Medical Decision Making - Medical Decision Making 07/04/19 18:21 Pt is 83yo F with PMH DM and polymyalgia rheumatica presenting with chest pain since 7AM. History reassuring given non-exertional, pain unchanged from prior episodes, burning in nature, no accompanying symptoms. Exam reassuring, notable for mild LE edema, stable vitals. HEART Score 3. DDX Includes r/o ACS vs GERD vs polymyalgia pain vs anxiety. History and exam not c/w dissection, PE, PTX, MSK pain. -CBC, CMP, Cardiac Profile -EKG -Pepcid, Statin, Maalox, Rispiridone 07/04/19 18:33 -No leukocytosis, no anemia -Normal LFTs, normal Cr, no electrolyte abnormalities -Troponin negative -EKG without ischemic changes -Patient reevaluated, feeling better after eating some dinner, still with mild burning quality chest discomfort Dispo: Home *DC/Admit/Observation/Transfer Diagnosis at time of Disposition: Chest pain of uncertain etiology - Discharge Dispostion Disposition: HOME Condition at time of disposition: Improved Decision to Admit order: No - Referrals - Patient Instructions Additional Instructions: You were seen in the [facility]. Thank you for coming in. You can continue to use OTC pain medications as needed. Please follow up with your primary care doctor within the next week. If you have any new or concerning symptoms please return to the emergency department. - Post Discharge Activity
--- NOTE | 2019-07-05 17:07 | EKG ---
Test Reason : Blood Pressure : / mmHG Vent. Rate : 059 BPM Atrial Rate : 059 BPM P-R Int : 136 ms QRS Dur : 074 ms QT Int : 420 ms P-R-T Axes : 059 019 -05 degrees QTc Int : 415 ms SINUS BRADYCARDIA OTHERWISE NORMAL ECG WHEN COMPARED WITH ECG OF 12-JAN-2017 22:49, PREMATURE ATRIAL COMPLEXES ARE NO LONGER PRESENT INVERTED T WAVES HAVE REPLACED NONSPECIFIC T WAVE ABNORMALITY IN INFERIOR LEADS Confirmed by MD NESHA, CHERYL ([id number]) on 07/05/2019 5:07:17 PM Referred By: SARAH Confirmed By:CHERYL JEFFRIES MD
== END 2019-07-04 19:07 | disposition home or self-care (01) ==
LOC: FER 16:38
DX: R07.89 Other chest pain (principal); I10 Essential (primary) hypertension; E11.9 Type 2 diabetes mellitus without complications; M35.3 Polymyalgia rheumatica; J45.909 Unspecified asthma, uncomplicated; F41.9 Anxiety disorder, unspecified; F32.9 Major depressive disorder, single episode, unspecified; Z87.891 Personal history of nicotine dependence; Z86.711 Personal history of pulmonary embolism; Z86.718 Personal history of other venous thrombosis and embolism
CPT/HCPCS: 36415; 80053; 82550; 84484; 85025; 93005; 99283-25

== ENCOUNTER 2019-09-14 11:51 | Emergency (ER) | payer OTHER, MEDICARE ==
[2019-09-14] MEDS ORDERED: SODIUM CHLORIDE 0.9% 1000 ML INFUS.BAG IV ONE ×2 (11:56→13:33)
[2019-09-14 12:00] VITALS: TEMP 97.9; BMI 22.8
[2019-09-14 12:33] LABS: BASO % 0.4 % (0-2.0); EOS % 1.3 % (0-4.5); HEMATOCRIT 40.1 % (32.4-45.2); HEMOGLOBIN 12.9 GM/dl (10.7-15.3); MCH 29.3 pg (25.7-33.7); MCHC 32.2 g/dl (32.0-36.0); MEAN CELL VOLUME 90.8 fl (80-96); MEAN PLT VOLUME 7.8 fl (7.5-11.1); MONO % 5.7 % (3.8-10.2); NEUT % 79.6 % (42.8-82.8); PLATELET COUNT 233 K/MM3 (134-434); RBC 4.41 M/mm3 (3.60-5.2); RDW 15.4 % (11.6-15.6); WHITE BLOOD COUNT 7.8 K/mm3 (4.0-10.8)
--- NOTE | 2019-09-14 12:53 | PDOC ---
History of Present Illness - General Chief Complaint: Diarrhea Stated Complaint: dirrhea,dehydration Time Seen by Provider: 09/14/19 11:54 - History of Present Illness Initial Comments: 09/14/19 12:51 84 years old with past medical history significant for bipolar depression presents to the emergency department with 2-day history of generalized weakness fatigue and one episode of loose stool yesterday. No travel no sick contacts no fever no chest pain or shortness of breath no abdominal pain diarrhea is nonbloody nonmucoid symptoms of fatigue are mild persistent constant with no exacerbating or alleviating factors. Past History - Past Medical History Allergies/Adverse Reactions: Allergies Allergy/AdvReac Type Severity Reaction Status Date / Time No Known Allergies Allergy Verified 09/14/19 11:53 Home Medications: Ambulatory Orders Empagliflozin [Jardiance] 10 mg PO DAILY 07/04/19 Risperidone 1 mg PO HS 07/04/19 Rosuvastatin Calcium [Crestor] 20 mg PO HS 07/04/19 Sitagliptin Phos/Metformin HCl [Janumet 50-500 mg Tablet] 1 each PO BID Albuterol Sulfate [Proair Hfa] 1 puff .ROUTE DAILY 09/14/19 Escitalopram Oxalate [Lexapro -] 5 mg PO DAILY 09/14/19 Omeprazole 20 mg PO DAILY 09/14/19 Asthma: Yes COPD: Yes Diabetes: Yes HTN: Yes Hypercholesterolemia: Yes Psychiatric Problems: Yes (ANXIETY,DEPRESSION) Lung CA: (PE) - Surgical History Orthopedic Surgery: Yes (L5S1 repair x3) - Psycho Social/Smoking Cessation Hx Smoking History: Former smoker Have you smoked in the past 12 months: No Information on smoking cessation initiated: No Hx Alcohol Use: No Drug/Substance Use Hx: No Substance Use Type: None Review of Systems - Review of Systems Comments:: 09/14/19 12:52 ROS: A complete review of 10 out of 10 review of systems is taken and is negative apart from what is previously mentioned below and in the HPI. *Physical Exam - Vital Signs Last Vital Signs Temp Pulse Resp BP Pulse Ox 97.9 F 59 L 20 122/90 95 09/14/19 11:52 09/14/19 11:52 09/14/19 11:52 09/14/19 11:52 09/14/19 11:52 - Physical Exam Comments: 09/14/19 12:52 Vitals: Triage Vital signs reviewed General Appearance: No acute distress, well nourished well developed, Head: Atraumatic, Cardiac: Regular rate and rhythym, no murmurs, no rubs, no gallops, Lungs: Clear to auscultation bilateral, good air movement bilaterally, Abdomen: Soft, non distended, normal bowel sounds, non tender to palpation Extremities: Full range of motion to all extremities, no cyanosis, clubbing, or edema Skin: Warm and dry, no rashes or lesions, no rash, no petechiae Psych: Normal mood, normal affect ED Treatment Course - LABORATORY CBC & Chemistry Diagram: 09/14/19 12:15 09/14/19 12:15 - ADDITIONAL ORDERS Additional order review: 09/14/19 12:15 RBC 4.41 MCV 90.8 MCHC 32.2 RDW 15.4 MPV 7.8 Neutrophils % 79.6 Lymphocytes % 13.0 Monocytes % 5.7 Eosinophils % 1.3 Basophils % 0.4 - Medications Given in the ED: ED Medications Discontinued Medications Generic Name Dose Route Start Last Admin Trade Name Freq PRN Reason Stop Dose Admin Sodium Chloride 1,000 ml 09/14/19 11:56 09/14/19 12:22 Normal Saline - IV 09/14/19 11:57 1,000 ml ONCE ONE Administration Medical Decision Making - Medical Decision Making 09/14/19 14:35 Well-appearing no apparent distress presents to the emergency department with several day history of weakness decreased p.o. intake at home one episode of loose stools but no travel no sick contacts low risk for infectious diarrheal illness We will hydrate check labs urinalysis observe and reassess Reevaluation 230 laboratory analysis within normal limits awaiting urinalysis results. Patient feels much better after fluids no evidence of significant dehydration on examination recommend more complete diet and PCP follow-up Findings, need for follow-up and strict return instructions discussed with patient. Discharge - Discharge Information Problems reviewed: Yes Clinical Impression/Diagnosis: Decreased appetite Condition: Fair Disposition: HOME - Admission No - Follow up/Referral Referrals: Lopez Obrien [Non Staff, Medical] - - Patient Discharge Instructions Patient Printed Discharge Instructions: Dehydration Additional Instructions: Please try to eat a more routine and regular diet drink plenty fluids. Follow- up with your primary care provider this week. Return to ED for any severe worsening symptoms or for any concerns. - Post Discharge Activity
[2019-09-14] MEDS ORDERED: ACETAMINOPHEN 1000 MG/100 ML VIAL (NON FORMULARY) IVPB ONE (13:33)
[2019-09-14] MEDS ORDERED: ACETAMINOPHEN INJECTION 100 ML IVPB ONE (13:38)
[2019-09-14 14:27] LABS: ALBUMIN 3.6 g/dl (3.4-5.0); BILIRUBIN,TOTAL 0.4 mg/dL (0.2-1); BLOOD UREA NITROGEN 19.5 mg/dL (7-18); CALCIUM 9.1 mg/dL (8.5-10.1); POTASSIUM 4.3 mmol/L (3.5-5.1); TOT PROT 6.7 g/dl (6.4-8.2)
[2019-09-14 15:44] LABS: CALCIUM OXALATE CRYSTALS FEW /hpf (NONE SEEN)
[2019-09-14 16:40] VITALS: BP 103/69; PULSE 74
== END 2019-09-14 16:25 | disposition home or self-care (01) ==
LOC: FER 11:51
PROC: 3E033NZ Introduction of Analgesics, Hypnotics, Sedatives into Peripheral Vein, Percutaneous Approach (ICD-10-PCS; principal; 2019-09-14)
PROC: 3E0337Z Introduction of Electrolytic and Water Balance Substance into Peripheral Vein, Percutaneous Approach (ICD-10-PCS; 2019-09-14)
DX: E86.0 Dehydration (principal); R63.0 Anorexia; Z68.22 Body mass index [BMI] 22.0-22.9, adult; I10 Essential (primary) hypertension; E11.9 Type 2 diabetes mellitus without complications; E78.00 Pure hypercholesterolemia, unspecified; J44.9 Chronic obstructive pulmonary disease, unspecified; F41.9 Anxiety disorder, unspecified; F32.9 Major depressive disorder, single episode, unspecified; Z86.711 Personal history of pulmonary embolism; Z87.891 Personal history of nicotine dependence
CPT/HCPCS: 36415; 80053; 81003; 81015; 85025; 87086; 99283-25; J0131; J7030

== ENCOUNTER 2021-03-09 10:18 | Emergency (ER) | payer OTHER, MEDICARE ==
[2021-03-09 10:30] VITALS: BP 133/62; PULSE 53; TEMP 98.1; BMI 28.3
[2021-03-09 11:06] LABS: BASO % 1.8 % (0-2.0); EOS % 4.3 % (0-4.5); HEMATOCRIT 39.7 % (32.4-45.2); LYMPH % 22.8 % (8-40); MCH 29.4 pg (25.7-33.7); MCHC 32.7 g/dl (32.0-36.0); MEAN PLT VOLUME 7.7 fl (7.5-11.1); MONO % 6.3 % (3.8-10.2); NEUT % 64.8 % (42.8-82.8); PLATELET COUNT 243 K/MM3 (134-434); RBC 4.41 M/mm3 (3.60-5.2); RDW 15.8 % (11.6-15.6); WHITE BLOOD COUNT 6.7 K/mm3 (4.0-10.8)
[2021-03-09 11:20] LABS: ALBUMIN 3.5 g/dl (3.4-5.0); BILIRUBIN,TOTAL 0.7 mg/dl (0.2-1); CALCIUM 9.2 mg/dl (8.5-10); CREATININE 0.9 mg/dl (0.55-1.3); PHOSPHOROUS 3.8 mg/dl (2.5-4.9); TOT PROT 6.4 g/dl (6.4-8.2)
== END 2021-03-09 13:35 | disposition home or self-care (01) ==
LOC: FER 10:18
DX: R51.9 Headache, unspecified (principal); R42 Dizziness and giddiness
CPT/HCPCS: 36415; 70450-TC; 71046-TC-FY; 80053; 81003; 82550; 83735; 84100; 84443; 84484; 85025; 87086; 93005; 99285-25

== ENCOUNTER 2021-04-01 10:35 | Emergency (ER) | payer OTHER, MEDICARE ==
[2021-04-01 10:51] VITALS: BP 131/68; PULSE 98; TEMP 98.2; BMI 28.3
[2021-04-01] MEDS ORDERED: ACETAMINOPHEN 325 MG TABLET (FP) PO ONE (11:00)
[2021-04-01] MEDS ORDERED: ACETAMINOPHEN 325 MG TABLET (FP) ONE (11:43)
== END 2021-04-01 15:12 | disposition home or self-care (01) ==
LOC: FER 10:35
DX: M79.652 Pain in left thigh (principal)
CPT/HCPCS: 73523-TC-FY; 73590-TC-LT-FY; 99285-25

== ENCOUNTER 2021-07-05 11:22 | Emergency (ER) | payer OTHER, MEDICARE ==
[2021-07-05 11:56] VITALS: BP 143/63; PULSE 58; TEMP 98.1; BMI 28.3
[2021-07-05 11:58] LABS: BASO % 1.7 % (0-2.0); EOS % 3.8 % (0-4.5); HEMATOCRIT 39.2 % (32.4-45.2); HEMOGLOBIN 12.5 GM/dl (10.7-15.3); LYMPH % 18.6 % (8-40); MCHC 31.9 g/dl (32.0-36.0); MEAN CELL VOLUME 91.1 fl (80-96); MEAN PLT VOLUME 7.4 fl (7.5-11.1); MONO % 7.6 % (3.8-10.2); NEUT % 68.3 % (42.8-82.8); PLATELET COUNT 241 10^3/uL (134-434); RDW 15.7 % (11.6-15.6); WHITE BLOOD COUNT 6.6 K/mm3 (4.0-10.8)
[2021-07-05 12:18] LABS: ALBUMIN 3.3 g/dl (3.4-5.0); ALK PHOS 131 U/L (45-117); ANION GAP 10 MMOL/L (8-16); BILIRUBIN,TOTAL 0.8 mg/dl (0.2-1); CHLORIDE 103 mmol/L (98-107); CO2 26 mmol/L (21-32); CREATININE 1.2 mg/dl (0.55-1.3); GLUCOSE,RANDOM 151 mg/dl (74-106); SGOT/AST 27 U/L (15-37); SGPT/ALT 23 U/L (13-61); SODIUM 139 mmol/L (136-145)
== END 2021-07-05 15:09 | disposition home or self-care (01) ==
LOC: FER 11:22
DX: T42.6X5A Adverse effect of other antiepileptic and sedative-hypnotic drugs, initial encounter (principal)
CPT/HCPCS: 36415; 70450-TC; 71045-TC-FY; 80053; 81003; 82550; 82553; 82962; 84484; 85025; 93005

== ENCOUNTER 2021-07-07 18:55 | Inpatient (IN) | payer OTHER, MEDICARE ==
[2021-07-07] MEDS ORDERED: SODIUM CHLORIDE 0.9% 500 ML INFUS.BAG IV ONE ×2 (20:24→23:12)
[2021-07-07] MEDS ORDERED: ACETAMINOPHEN 1000 MG/100 ML VIAL (NON FORMULARY) IVPB ONE (20:24)
[2021-07-07] MEDS ORDERED: ACETAMINOPHEN INJECTION 100 ML IVPB ONE (20:41)
[2021-07-07 21:15] LABS: HEMATOCRIT 39.5 % (32.4-45.2); HEMOGLOBIN 12.9 GM/dl (10.7-15.3); MCH 29.7 pg (25.7-33.7); MCHC 32.5 g/dl (32.0-36.0); MEAN CELL VOLUME 91.3 fl (80-96); MEAN PLT VOLUME 7.8 fl (7.5-11.1); PLATELET COUNT 252 10^3/uL (134-434); RBC 4.32 M/mm3 (3.60-5.2); RDW 15.9 % (11.6-15.6); WHITE BLOOD COUNT 7.4 K/mm3 (4.0-10.8)
[2021-07-07 21:36] LABS: ANISOCYTOSIS RARE
[2021-07-07 21:37] LABS: PLATELET ESTIMATE ADEQUATE
[2021-07-07 21:57] LABS: ERYTHROCYTE SEDIMENTATION RATE 23 mm/hr (0-30)
[2021-07-07 22:01] LABS: ALK PHOS 134 U/L (45-117); ANION GAP 14 MMOL/L (8-16); BILIRUBIN,TOTAL 1.1 mg/dl (0.2-1); CALCIUM 9.4 mg/dl (8.5-10); CHLORIDE 101 mmol/L (98-107); CO2 24 mmol/L (21-32); CREATININE 1.3 mg/dl (0.55-1.3); GLUCOSE,RANDOM 78 mg/dl (74-106); SGOT/AST 29 U/L (15-37); SGPT/ALT 24 U/L (13-61); SODIUM 139 mmol/L (136-145); TOT PROT 7.2 g/dl (6.4-8.2)
[2021-07-07] MEDS ORDERED: methylPREDNISolone NA SUCC 125 MG/2 ML VIAL IVPB ONE (22:51)
[2021-07-07] MEDS ORDERED: methylPREDNISolone NA SUCC 125 MG/2 ML VIAL ONE (23:25)
[2021-07-08 01:21] LABS: URINE APPEARANCE CLEAR; URINE BILIRUBIN NEGATIVE (NEGATIVE); URINE COLOR YELLOW; URINE GLUCOSE (UA) 3+ (NEGATIVE); URINE KETONE 1+ (NEGATIVE); URINE LEUK ESTERASE NEGATIVE (NEGATIVE); URINE NITRITE NEGATIVE (NEGATIVE); URINE PROTEIN NEGATIVE (NEGATIVE); URINE UROBILINOGEN 0.2 mg/dL (0.2-1.0)
[2021-07-08] MEDS ORDERED: ACETAMINOPHEN 325 MG TABLET (FP) PO PRN (04:22)
[2021-07-08 05:07] VITALS: BMI 28.5
[2021-07-08] MEDS ORDERED: MAG HYDROX/AL HYDROX/SIMETH 30 ML UNIT-DOSE CUP PO PRN (05:29)
[2021-07-08] MEDS: HEPARIN NA (PORCINE) 5,000 UNITS/ML 1ML VIAL SQ SCH ×3 (06:38→21:33)
[2021-07-08] MEDS: INSULIN SLIDING SCALE (NOVOLOG) 1 VIAL SQ SCH ×4 (06:39→21:54)
[2021-07-08] MEDS: ALBUTEROL SO4 HFA INHALER IH SCH (09:43)
[2021-07-08] MEDS: FUROSEMIDE 20 MG TABLET (FP) PO SCH (09:45)
[2021-07-08] MEDS: PANTOPRAZOLE 20 MG TABLET PO SCH (09:45)
[2021-07-08] MEDS: CYANOCOBALAMIN 1,000 MCG TABLET (FP) PO SCH (09:45)
[2021-07-08] MEDS: ESCITALOPRAM OXALATE 20 MG TABLET PO SCH (09:45)
[2021-07-08] MEDS: GABAPENTIN 300 MG CAPSULE PO SCH ×2 (09:45→21:33)
[2021-07-08] MEDS: predniSONE 20 MG TABLET (UD) PO SCH (09:46)
[2021-07-08] MEDS: ASPIRIN COATED 81 MG TABLET.EC PO SCH (09:46)
[2021-07-08] MEDS: ARIPiprazole 5 MG TABLET PO SCH (10:20)
[2021-07-08] MEDS: ATORVASTATIN CA 40 MG TABLET (FP) PO SCH (21:33)
[2021-07-08] MEDS: DONEPEZIL HCL 10 MG TABLET (FP) PO SCH (21:33)
[2021-07-09] MEDS: HEPARIN NA (PORCINE) 5,000 UNITS/ML 1ML VIAL SQ SCH ×3 (06:21→21:27)
[2021-07-09] MEDS: INSULIN SLIDING SCALE (NOVOLOG) 1 VIAL SQ SCH ×4 (07:27→21:27)
[2021-07-09 09:40] LABS: BASO % 1.9 % (0-2.0); HEMATOCRIT 37.5 % (32.4-45.2); HEMOGLOBIN 11.9 GM/dl (10.7-15.3); MCH 29.3 pg (25.7-33.7); MCHC 31.7 g/dl (32.0-36.0); MEAN CELL VOLUME 92.4 fl (80-96); MEAN PLT VOLUME 8.1 fl (7.5-11.1); MONO % 9.6 % (3.8-10.2); NEUT % 72.5 % (42.8-82.8); PLATELET COUNT 234 10^3/uL (134-434); RBC 4.06 M/mm3 (3.60-5.2); RDW 15.9 % (11.6-15.6); WHITE BLOOD COUNT 8.2 K/mm3 (4.0-10.8)
[2021-07-09] MEDS: predniSONE 20 MG TABLET (UD) PO SCH (09:57)
[2021-07-09] MEDS: CYANOCOBALAMIN 1,000 MCG TABLET (FP) PO SCH (09:57)
[2021-07-09] MEDS: PANTOPRAZOLE 20 MG TABLET PO SCH (09:57)
[2021-07-09] MEDS: GABAPENTIN 300 MG CAPSULE PO SCH ×2 (09:57→21:27)
[2021-07-09] MEDS: ESCITALOPRAM OXALATE 20 MG TABLET PO SCH (09:58)
[2021-07-09] MEDS: FUROSEMIDE 20 MG TABLET (FP) PO SCH (09:58)
[2021-07-09] MEDS: ASPIRIN COATED 81 MG TABLET.EC PO SCH (09:58)
[2021-07-09 10:08] LABS: ACTIVATED PTT 25.8 SECONDS (25.2-36.5)
[2021-07-09 10:12] LABS: INR 0.89 (0.82-1.09)
[2021-07-09] MEDS: ARIPiprazole 5 MG TABLET PO SCH (10:26)
[2021-07-09] MEDS: ALBUTEROL SO4 HFA INHALER IH SCH (10:26)
[2021-07-09 10:37] LABS: ALBUMIN 3.1 g/dl (3.4-5.0); BILIRUBIN,TOTAL 1.2 mg/dl (0.2-1); CALCIUM 8.8 mg/dl (8.5-10); CREATININE 0.9 mg/dl (0.55-1.3); MAGNESIUM 2.1 mg/dL (1.8-2.4); TOT PROT 5.9 g/dl (6.4-8.2)
[2021-07-09] MEDS: DONEPEZIL HCL 10 MG TABLET (FP) PO SCH (21:27)
[2021-07-09] MEDS: ATORVASTATIN CA 40 MG TABLET (FP) PO SCH (21:27)
[2021-07-10 02:28] VITALS: TEMP 97.7
[2021-07-10] MEDS: INSULIN SLIDING SCALE (NOVOLOG) 1 VIAL SQ SCH (06:39)
[2021-07-10] MEDS: HEPARIN NA (PORCINE) 5,000 UNITS/ML 1ML VIAL SQ SCH (06:39)
[2021-07-10 06:49] VITALS: BP 137/68; PULSE 56
[2021-07-10] MEDS ORDERED: PT OWN MED DRAWER 7, Y5N ONE (09:09)
[2021-07-10] MEDS: ASPIRIN COATED 81 MG TABLET.EC PO SCH (09:32)
[2021-07-10] MEDS: ESCITALOPRAM OXALATE 20 MG TABLET PO SCH (09:32)
[2021-07-10] MEDS: PANTOPRAZOLE 20 MG TABLET PO SCH (09:33)
[2021-07-10] MEDS: FUROSEMIDE 20 MG TABLET (FP) PO SCH (09:33)
[2021-07-10] MEDS: GABAPENTIN 300 MG CAPSULE PO SCH (09:33)
[2021-07-10] MEDS: ALBUTEROL SO4 HFA INHALER IH SCH (09:33)
[2021-07-10] MEDS: CYANOCOBALAMIN 1,000 MCG TABLET (FP) PO SCH (09:36)
[2021-07-10] MEDS: ARIPiprazole 5 MG TABLET PO SCH (09:38)
== END 2021-07-10 14:15 | disposition home or self-care (01) | DRG 103 ==
LOC: FER 18:55 → SUPCPDRO 18:55 → FM/S 07-08 04:15
PROVIDERS: ADMIT Internal Medicine; ATTEND Nurse Practitioner Acute Care
DX: R51.9 Headache, unspecified (principal); I10 Essential (primary) hypertension; E11.9 Type 2 diabetes mellitus without complications; F03.90 Unspecified dementia, unspecified severity, without behavioral disturbance, psychotic disturbance, mood disturbance, and anxiety; J44.9 Chronic obstructive pulmonary disease, unspecified; J45.909 Unspecified asthma, uncomplicated; E78.5 Hyperlipidemia, unspecified; E78.00 Pure hypercholesterolemia, unspecified; R53.83 Other fatigue; R63.0 Anorexia; F41.8 Other specified anxiety disorders; R62.7 Adult failure to thrive
CPT/HCPCS: 36415; 70450-TC; 71045-TC-FY; 80053; 81003; 82550; 82553; 82962; 83735; 84484; 85025; 85610; 85651; 85730; 86140; 87086; 87804; 93005; 97116-GP; 97161-GP; 99285-25; C9803; J0131; J1644; U0003; U0005

== ENCOUNTER 2021-11-06 23:02 | Emergency (ER) | payer OTHER, MEDICARE ==
[2021-11-06 23:15] VITALS: BP 115/50; PULSE 66; TEMP 97.7; BMI 27.4
== END 2021-11-07 00:27 | disposition home or self-care (01) ==
LOC: FER 23:02
DX: M25.571 Pain in right ankle and joints of right foot (principal); M25.561 Pain in right knee; W01.0XXA Fall on same level from slipping, tripping and stumbling without subsequent striking against object, initial encounter
CPT/HCPCS: 70450-TC; 99284-25